=== PATIENT | female | born 1970 | race Caucasian/White ===

== ENCOUNTER 2016-04-11 20:59 | Inpatient (IN) | payer OTHER ==
[~2016-04-11] VITALS: Ht 162.6 cm; Wt 61.1 kg
[2016-04-11 21:41] LABS: HEMATOCRIT 37.2 % (36.0-46.0); MCH 29.9 PG (29.0-34.0); MCHC 34.7 G/DL (30.0-36.0); MCV 86.3 FL (83-99); MEAN PLAT.VOLUME 8.6 uM^3 (9.5-12.4); PLATELET COUNT 299 K/uL (156-360); RBC DIS.WIDTH-CV 14.6 % (11.8-14.6); RBC DIS.WIDTH-SD 45.1 % (39-53); RED BLOOD COUNT 4.31 M/uL (3.80-5.20); WHITE BLOOD COUNT 7.4 K/uL (4.1-10.2)
[2016-04-11 21:51] LABS: CHLORIDE 109 mEq/L (99-109); POTASSIUM 3.6 mEq/L (3.7-5.4); SODIUM 145 mEq/L (136-147)
[2016-04-11 21:54] LABS: GLUCOSE 99 mg/dL (70-99)
[2016-04-11 21:55] LABS: ANION GAP 12 MEQ/L (2-14)
[2016-04-11 21:56] LABS: TOTAL BILIRUBIN 0.2 mg/dL (0.0-1.0)
[2016-04-11 21:57] LABS: ALKALINE PHOSPHATASE 61 IU/L (3-129); SERUM ETHYL ALCOHOL 448 mg/dL
[2016-04-11 21:58] LABS: GFR ESTIMATE (CALCULATED) > 59 mL/min/
[2016-04-11 21:59] LABS: UREA NITROGEN (BUN) 17 mg/dL (9-23)
[2016-04-12 02:37] LABS: ADD MIUA? YES; BILIRUBIN NEGATIVE; BLOOD MODERATE; COLOR YELLOW ((YELLOW)); GLUCOSE (STRIP) NEGATIVE; KETONES NEGATIVE; LEUKOCYTES NEGATIVE; NITRITE NEGATIVE; PROTEIN (STRIP) 30; SPECIFIC GRAVITY 1.016 (1.000-1.030); UROBILINOGEN 0.2 MG/DL (0.2-1.0)
[2016-04-12 02:46] LABS: BACTERIA RARE /HPF; EPITHELIAL CELLS 1+ /HPF; MUCUS TRACE /LPF; WHITE BLOOD CELLS 0-5 /HPF (0-5)
[2016-04-12 02:47] LABS: ADD MEDTOX COMMENT Y; AMPHETAMINE NEGATIVE (500 ng/mL); BARBITURATES NEGATIVE (200 ng/mL); BENZODIAZEPINES PRESUMPTIVE POSITIVE (150 ng/mL); COCAINE NEGATIVE (150 ng/mL); INTERNAL CONTROLS VALID? YES; METHADONE NEGATIVE (200 ng/mL); METHAMPHETAMINE NEGATIVE (500 ng/mL); OPIATES (MORPHINE) NEGATIVE (100 ng/mL); OXYCODONE NEGATIVE (100 ng/mL); PHENCYCLIDINE NEGATIVE (25 ng/mL); PROPOXYPHENE NEGATIVE (300 ng/mL); THC CANNABINOIDS NEGATIVE (50 ng/mL); TRICYCLIC ANTIDEPRESSANTS NEGATIVE (300 ng/mL)
[2016-04-12 04:13] LABS: BENZODIAZEPINES, URINE SCREEN POSITIVE (200 ng/mL)
[2016-04-12] MEDS ORDERED: LEVOTHYROXINE112 MCG PO (14:29)
[2016-04-12 15:02] VITALS: BP 168/87
[2016-04-12 15:17] VITALS: BP 168/87
[2016-04-12 18:34] VITALS: BP 131/75
[2016-04-13 07:43] VITALS: BP 150/93
[2016-04-13 11:00] VITALS: BP 158/90
[2016-04-13 15:13] VITALS: BP 167/94
[2016-04-13 17:58] VITALS: BP 123/79
[2016-04-14 07:48] VITALS: BP 153/82
[2016-04-14 15:15] VITALS: BP 155/71
[2016-04-15 07:45] VITALS: BP 181/91
[2016-04-15 09:09] VITALS: BP 160/91
[2016-04-15 12:17] VITALS: BP 185/90
[2016-04-15 14:25] VITALS: BP 186/96
[2016-04-15 15:21] VITALS: BP 136/88
[2016-04-15 17:21] VITALS: BP 142/90
[2016-04-16 07:50] VITALS: BP 123/84
[2016-04-16 15:34] VITALS: BP 153/106
[2016-04-16 18:03] VITALS: BP 132/83
[2016-04-17 07:55] VITALS: BP 107/71
[2016-04-17] MEDS ORDERED: LISINOPRIL20 MG PO (09:53)
[2016-04-17] MEDS ORDERED: AMLODIPINE BESYL5 MG PO (09:53)
[2016-04-17] MEDS ORDERED: CITALOPRAM HBR20 MG PO (09:53)
[2016-04-17] MEDS ORDERED: LEVOTHYROXINE112 MCG PO (09:55)
== END 2016-04-17 13:13 | disposition home or self-care (01) | DRG 881 ==
LOC: EME 20:59 → EDOF 04-12 13:06 → 1WEST 04-12 13:06 → EDOF 04-12 14:28 → 1WEST 04-12 14:59
PROVIDERS: Emergency Medicine
DX: F32.9 Major depressive disorder, single episode, unspecified (principal); F10.129 Alcohol abuse with intoxication, unspecified; I10 Essential (primary) hypertension; F17.200 Nicotine dependence, unspecified, uncomplicated; E03.9 Hypothyroidism, unspecified; R45.851 Suicidal ideations; Y90.8 Blood alcohol level of 240 mg/100 ml or more
CPT/HCPCS: 80053; 81003; 84999; 85027; 90837; 97150 GO; 97165 GO; 99281; 99285; G0480; J2405; Q0169

== ENCOUNTER 2016-12-13 18:53 | Inpatient (IN) | payer OTHER ==
[~2016-12-13] VITALS: Ht 160 cm; Wt 70.8 kg
[~2016-12-13 18:53] MED LIST: AMLODIPINE BESYL5 MG PO; CITALOPRAM HBR20 MG PO; LEVOTHYROXINE112 MCG PO; LISINOPRIL20 MG PO
[2016-12-13 19:54] LABS: BASOPHIL COUNT 0.1 K/uL (0-0.1); EOSINOPHIL (%) 1.4 % (0-5); EOSINOPHIL COUNT 0.1 K/uL (0-0.3); HEMATOCRIT 40.1 % (36.0-46.0); IMMATURE GRANULOCYTE (%) 0.8 % (0.0-0.7); IMMATURE GRANULOCYTE COUNT 0.1 K/uL; INSTRUMENT ABS NEUTROPHIL CT 3.7 K/uL; LYMPHOCYTE COUNT 2.7 K/uL (1.0-2.8); MCH 30.2 PG (29.0-34.0); MCHC 34.2 G/DL (30.0-36.0); MCV 88.3 FL (83-99); MEAN PLAT.VOLUME 8.5 uM^3 (9.5-12.4); MONOCYTE (%) 10.3 % (3-12); MONOCYTE COUNT 0.8 K/uL (0-0.8); NEUTROPHIL (%) 49.7 % (45-76); NEUTROPHIL COUNT 3.7 K/uL (1.8-6.4); PLATELET COUNT 235 K/uL (156-360); RBC DIS.WIDTH-CV 13.4 % (11.8-14.6); RBC DIS.WIDTH-SD 43.6 % (39-53); RED BLOOD COUNT 4.54 M/uL (3.80-5.20); WHITE BLOOD COUNT 7.4 K/uL (4.1-10.2)
[2016-12-13 19:59] LABS: CHLORIDE 107 mEq/L (99-109); POTASSIUM 3.9 mEq/L (3.7-5.4); SODIUM 143 mEq/L (136-147)
[2016-12-13 20:01] LABS: GLUCOSE 114 mg/dL (70-99)
[2016-12-13 20:02] LABS: ANION GAP 13 MEQ/L (2-14)
[2016-12-13 20:03] LABS: TOTAL BILIRUBIN 0.3 mg/dL (0.0-1.0)
[2016-12-13 20:04] LABS: SERUM ETHYL ALCOHOL 441 mg/dL
[2016-12-13 20:05] LABS: ALKALINE PHOSPHATASE 86 IU/L (3-129); GFR ESTIMATE (CALCULATED) > 59 mL/min/
[2016-12-13 20:06] LABS: UREA NITROGEN (BUN) 11 mg/dL (9-23)
[2016-12-13 20:13] LABS: QUANTITATIVE HCG < 4.0 MIU/ML
[2016-12-13 20:47] LABS: ADD MEDTOX COMMENT Y; AMPHETAMINE NEGATIVE (500 ng/mL); BARBITURATES NEGATIVE (200 ng/mL); BENZODIAZEPINES PRESUMPTIVE POSITIVE (150 ng/mL); COCAINE NEGATIVE (150 ng/mL); INTERNAL CONTROLS VALID? YES; METHADONE NEGATIVE (200 ng/mL); METHAMPHETAMINE NEGATIVE (500 ng/mL); OPIATES (MORPHINE) NEGATIVE (100 ng/mL); OXYCODONE NEGATIVE (100 ng/mL); PHENCYCLIDINE NEGATIVE (25 ng/mL); PROPOXYPHENE NEGATIVE (300 ng/mL); THC CANNABINOIDS NEGATIVE (50 ng/mL); TRICYCLIC ANTIDEPRESSANTS NEGATIVE (300 ng/mL)
[2016-12-13 21:27] LABS: BENZODIAZEPINES QUANT VALUE 0 NG/ML; BENZODIAZEPINES, URINE SCREEN Negative (200 ng/mL)
[2016-12-14] MEDS ORDERED: CITALOPRAM HBR40 MG PO (11:33)
[2016-12-14] MEDS ORDERED: NICOTINE LOZENGE2 MG BC (11:34)
[2016-12-14] MEDS ORDERED: QUETIAPINE FUM100 MG PO (11:35)
[2016-12-14] MEDS ORDERED: LISINOPRIL5 MG PO (11:36)
[2016-12-14] MEDS ORDERED: ATENOLOL50 MG PO (13:19)
[2016-12-14] MEDS ORDERED: EXELON3 MG PO (13:19)
[2016-12-14 13:21] VITALS: BP 193/112
[2016-12-14] MEDS ORDERED: LISINOPRIL20 MG PO (13:43)
[2016-12-14] MEDS ORDERED: NORVASC5 MG PO (13:43)
[2016-12-14 13:46] VITALS: BP 193/112
[2016-12-14 14:22] LABS: MAGNESIUM 2.4 mg/dL (1.3-2.7)
[2016-12-14 15:30] VITALS: BP 182/97
[2016-12-15 07:59] VITALS: BP 117/76
[2016-12-15 17:43] VITALS: BP 137/84
[2016-12-16 07:25] VITALS: BP 121/53
[2016-12-16 15:53] VITALS: BP 131/83
[2016-12-17 07:17] VITALS: BP 131/91
[2016-12-17 15:20] VITALS: BP 139/82
[2016-12-18 07:33] VITALS: BP 133/82
[2016-12-18] MEDS ORDERED: NALTREXONE HCL50 MG PO (09:04)
[2016-12-18] MEDS ORDERED: QUETIAPINE FUM100 MG PO ×2 (09:04→09:16)
[2016-12-18] MEDS ORDERED: CITALOPRAM HBR40 MG PO ×2 (09:04→09:16)
== END 2016-12-18 13:17 | disposition home or self-care (01) | DRG 885 ==
LOC: EME 18:53 → 1WEST 12-14 10:41 → EDOF 12-14 10:41 → ENRESERV 12-14 13:10 → 1WEST 12-14 13:15
PROVIDERS: Emergency Medicine
DX: F32.1 Major depressive disorder, single episode, moderate (principal); R45.851 Suicidal ideations; I10 Essential (primary) hypertension; E03.9 Hypothyroidism, unspecified; Z87.891 Personal history of nicotine dependence; F10.229 Alcohol dependence with intoxication, unspecified; F10.239 Alcohol dependence with withdrawal, unspecified
CPT/HCPCS: 71020; 80053; 83735; 84702; 84999; 85025; 90839; 99281; 99285; G0480

== ENCOUNTER 2017-06-21 19:49 | Observation (INO) | payer OTHER ==
[~2017-06-21] VITALS: Ht 160 cm; Wt 72.7 kg
[~2017-06-21 19:49] MED LIST changes: +ATENOLOL50 MG PO; +CITALOPRAM HBR40 MG PO; +EXELON3 MG PO; +LISINOPRIL5 MG PO; +NALTREXONE HCL50 MG PO; +NICOTINE LOZENGE2 MG BC; +NORVASC5 MG PO; +QUETIAPINE FUM100 MG PO
[2017-06-21 21:02] LABS: HEMATOCRIT 41.3 % (36.0-46.0); HEMOGLOBIN 14.6 G/DL (11.9-15.5); MCH 29.7 PG (29.0-34.0); MCHC 35.4 G/DL (30.0-36.0); MCV 84.1 FL (83-99); PLATELET COUNT 314 K/uL (156-360); RBC DIS.WIDTH-CV 12.5 % (11.8-14.6); RBC DIS.WIDTH-SD 38.1 % (39-53); RED BLOOD COUNT 4.91 M/uL (3.80-5.20); WHITE BLOOD COUNT 8.7 K/uL (4.1-10.2)
[2017-06-21 22:33] LABS: QUANTITATIVE HCG < 4.0 MIU/ML
[2017-06-21 22:38] LABS: ACETAMINOPHEN (TYLENOL) < 10 MCG/ML (10-30); ALBUMIN 4.4 G/DL (3.2-4.8); ALKALINE PHOSPHATASE 60 IU/L (3-129); ALT (GPT) 23 IU/L (3-49); AST (GOT) 29 IU/L (2-34); CHLORIDE 105 MEQ/L (99-109); CREATININE 0.6 MG/DL (0.6-1.3); GFR ESTIMATE (CALCULATED) > 59 mL/min/; GLUCOSE 96 mg/dL (70-99); POTASSIUM 3.5 MEQ/L (3.7-5.4); SERUM ETHYL ALCOHOL 418 mg/dL; SODIUM 142 MEQ/L (136-147); TOTAL BILIRUBIN 0.6 MG/DL (0.0-1.0); TOTAL PROTEIN 6.9 G/DL (6.4-8.3); UREA NITROGEN (BUN) 17 mg/dL (9-23)
[2017-06-21 23:51] LABS: AMPHETAMINE NEGATIVE (500 ng/mL); BARBITURATES NEGATIVE (200 ng/mL); BENZODIAZEPINES PRESUMPTIVE POSITIVE (150 ng/mL); BUPRENORPHINE NEGATIVE (10 ng/mL); COCAINE NEGATIVE (150 ng/mL); METHADONE NEGATIVE (200 ng/mL); METHAMPHETAMINE NEGATIVE (500 ng/mL); OPIATES (MORPHINE) NEGATIVE (100 ng/mL); OXYCODONE NEGATIVE (100 ng/mL); PHENCYCLIDINE NEGATIVE (25 ng/mL); PROPOXYPHENE NEGATIVE (300 ng/mL); THC CANNABINOIDS NEGATIVE (50 ng/mL); TRICYCLIC ANTIDEPRESSANTS NEGATIVE (300 ng/mL)
[2017-06-22 00:18] LABS: BENZODIAZEPINES, URINE SCREEN Negative (200 ng/mL)
[2017-06-22] MEDS ORDERED: LAMICTAL100 MG PO (10:57)
[2017-06-22] MEDS ORDERED: LEXAPRO20 MG PO (10:57)
[2017-06-22] MEDS ORDERED: CLARITIN,ALAVAR10 MG PO (10:57)
[2017-06-22] MEDS ORDERED: DEPO-PROVER150 MG/ML IM (10:58)
[2017-06-22 12:08] VITALS: BP 142/81
[2017-06-22 15:33] VITALS: BP 137/80
[2017-06-22 23:19] VITALS: BP 117/74
[2017-06-23 04:26] VITALS: BP 132/84
[2017-06-23 07:20] VITALS: BP 122/81
[2017-06-23 08:34] LABS: MCH 29.2 PG (29.0-34.0); MCV 85.8 FL (83-99); RBC DIS.WIDTH-CV 12.1 % (11.8-14.6); RBC DIS.WIDTH-SD 38.5 % (39-53); RED BLOOD COUNT 4.08 M/uL (3.80-5.20); WHITE BLOOD COUNT 5.1 K/uL (4.1-10.2)
[2017-06-23 08:56] LABS: PLAT.SUFFICIENCY ADEQUATE
[2017-06-23 08:59] LABS: HEMOGLOBIN 11.9 G/DL (11.9-15.5); PLATELET COUNT 174 K/uL (156-360)
[2017-06-23 09:19] LABS: CHLORIDE 106 MEQ/L (99-109); CREATININE 0.6 MG/DL (0.6-1.3); GFR ESTIMATE (CALCULATED) > 59 mL/min/; GLUCOSE 90 mg/dL (70-99); POTASSIUM 3.5 MEQ/L (3.7-5.4); SODIUM 138 MEQ/L (136-147); UREA NITROGEN (BUN) 10 mg/dL (9-23)
[2017-06-23 09:21] LABS: MAGNESIUM 2.4 mg/dl (1.3-2.7)
[2017-06-23 11:42] VITALS: BP 129/82
[2017-06-23 15:27] VITALS: BP 122/71
== END 2017-06-23 16:30 | disposition home or self-care (01) ==
LOC: EME 19:49 → EDOF 06-22 10:54 → 4SOUTH 06-22 10:54 → EDOF 06-22 10:54 → ENRESERV 06-22 10:56 → EDOF 06-22 11:03 → ENRESERV 06-22 11:14 → 4SOUTH 06-22 11:44 → ENRESERV 06-22 11:52 → 4SOUTH 06-22 11:52
PROVIDERS: Emergency Medicine; Physician Assistant
DX: F10.239 Alcohol dependence with withdrawal, unspecified (principal); R45.851 Suicidal ideations; F10.229 Alcohol dependence with intoxication, unspecified; Y90.8 Blood alcohol level of 240 mg/100 ml or more; E87.6 Hypokalemia; E83.42 Hypomagnesemia; F33.2 Major depressive disorder, recurrent severe without psychotic features; Z91.14 Patient's other noncompliance with medication regimen; I10 Essential (primary) hypertension; R00.0 Tachycardia, unspecified; Z87.891 Personal history of nicotine dependence
CPT/HCPCS: 70450; 80048; 80053; 83735; 84702; 84999; 85027; 90839; 99281; 99285; G0378; G0480; J1630; J2060; J3411; J3475; J3480; J7030; J7040